=== PATIENT | female | born 1995 | race Two or more races ===

== ENCOUNTER 2019-10-05 02:29 | Inpatient (IN) ==
[2019-10-05 03:10] VITALS: BMI 27.3
[2019-10-05 03:23] LABS: AMNISURE ROM TEST THERE IS A RUPTURE (NO RUPTURE)
[2019-10-05 04:11] LABS: ALANINE AMINOTRANSFERASE 18 Units/L (12-78); ALBUMIN 2.5 g/dL (3.4-5.0); ALKALINE PHOSPHATASE 184 Units/L (46-116); ASPARTATE AMINO TRANSFERASE 21 Units/L (15-37); BLOOD UREA NITROGEN 10 mg/dL (7-18); CALCIUM 8.1 mg/dL (8.5-10.1); CARBON DIOXIDE 25.3 mmol/L (21-32); CHLORIDE 102 mmol/L (98-107); COR CA(FOR HYPOALB) 9.3 mg/dL (8.5-10.1); CREATININE 0.58 mg/dL (0.55-1.02); SODIUM 136 mmol/L (136-145); TOTAL PROTEIN 6.3 g/dL (6.4-8.2); eGFR NON BLACK RACES > 60 (>60)
[2019-10-05 04:18] LABS: HEMOGLOBIN 10.6 g/dL (12.0-16.0); MEAN PLATELET VOLUME 8.8 fL (7.4-11.0); RED BLOOD COUNT 4.07 X10^6/uL (3.5-5.4)
[2019-10-05 04:22] LABS: BASOPHILS % (AUTO) 0.4 % (0.2-1.0); EOSINOPHILS % (AUTO) 0.3 % (0.9-2.9); HEMATOCRIT 31.6 % (36.0-47.0); LYMPHOCYTES # (AUTO) 1.7 X10^3/uL (1.3-2.9); LYMPHOCYTES % (AUTO) 21.5 % (21.0-51.0); MEAN CORPUSCULAR HEMOGLOBIN 26.1 pg (27.0-34.0); MEAN CORPUSCULAR HGB CONC 33.6 g/dL (33.0-35.0); MEAN CORPUSCULAR VOLUME 77.8 fL (80.0-100.0); MONOCYTES # (AUTO) 0.5 x10^3/uL (0.3-0.8); MONOCYTES % (AUTO) 6.3 % (0.0-13.0); NEUTROPHILS # (AUTO) 5.6 x10^3/uL (2.2-4.8); NEUTROPHILS % (AUTO) 71.5 % (42.0-75.0); PLATELET COUNT 231 X10^3/uL (150.0-450.0); RED CELL DISTRIBUTION WIDTH 14.3 % (11.6-16.5); WHITE BLOOD COUNT 7.8 X10^3/uL (3.6-10.0)
[2019-10-05] MEDS ORDERED: D5 1/2 NS 1000 ML 1,000 ML IV ONE (04:24)
[2019-10-05] MEDS ORDERED: PITOCIN ONE (04:25)
[2019-10-05] MEDS ORDERED: D5 1/2 NS 1L W PITOCIN 20 UNITS/L 20 UNITS/1,000 ML BAG IV ONE (04:25)
[2019-10-05] MEDS ORDERED: D5LR 1L W PITOCIN 10 UNITS/L 10 UNITS/1,000 ML BAG IV ONE (04:25)
[2019-10-05] MEDS ORDERED: PHENERGAN INJ 25 MG IM PRN (04:33)
[2019-10-05] MEDS ORDERED: D5LR 1L W PITOCIN 10 UNITS/L 10 UNITS/1,000 ML BAG IV PRN (04:33)
[2019-10-05] MEDS ORDERED: REGLAN INJ 10 MG VIAL IVP PRN (04:33)
[2019-10-05] MEDS ORDERED: PITOCIN IVP ONE (04:33)
[2019-10-05] MEDS ORDERED: D5 1/2 NS 1000 ML 1,000 ML IV SCH (05:00)
[2019-10-05] MEDS ORDERED: STADOL INJ ONE (05:17)
[2019-10-05] MEDS ORDERED: STADOL INJ IVP PRN (05:18)
[2019-10-05] MEDS ORDERED: MOTRIN TAB 800 MG PO PRN (07:40)
[2019-10-05] MEDS ORDERED: D5 1/2 NS 1000 ML 1,000 ML with PITOCIN 20 UNITS IV SCH ×2 (08:00)
[2019-10-05] MEDS ORDERED: DERMOPLAST PAIN RELIEF SPRAY TOP PRN (08:13)
[2019-10-05] MEDS ORDERED: MILK OF MAGNESIA PO PRN (08:13)
[2019-10-05] MEDS ORDERED: AMBIEN PO PRN (08:13)
[2019-10-05] MEDS: PRENATAL PLUS PO SCH (11:46)
[2019-10-05] MEDS ORDERED: NS 100 ML IV 100 ML with VENOFER 400 MG IV NR ×2 (15:37)
[2019-10-05] MEDS ORDERED: NS 100 ML IV 100 ML IV ONE (15:38)
[2019-10-05] MEDS ORDERED: VENOFER IV ONE (15:44)
[2019-10-06 05:18] LABS: HEMATOCRIT 34.3 % (36.0-47.0); HEMOGLOBIN 11.3 g/dL (12.0-16.0)
[2019-10-06] MEDS ORDERED: NS 100 ML IV 100 ML with VENOFER 400 MG IV NR ×2 (07:00)
[2019-10-06] MEDS: PRENATAL PLUS PO SCH (08:05)
[2019-10-06 12:38] VITALS: BP 169/60
[2019-10-06] MEDS ORDERED: ADACEL or BOOSTRIX TDaP VACCINE IM ONE (13:00)
== END 2019-10-06 03:15 | disposition home or self-care (01) | DRG 807 ==
LOC: ER 02:30 → LD 03:50 → ER 03:50 → MED/SURG 08:14
PROVIDERS: ADMIT Obstetrics & Gynecology Obstetrics; ATTEND Obstetrics & Gynecology
DX: Z37.0 Single live birth; Z3A.39 39 weeks gestation of pregnancy; Z23 Encounter for immunization; O80 Encounter for full-term uncomplicated delivery; Z11.59 Encounter for screening for other viral diseases
CPT/HCPCS: 36415; 80053; 84112; 85014; 85018; 85025; 86592; 86850; 86900; 86901; 87635; 90715; 96365; 99284; A4216; A4222; J0595; J1756; J2590; J7050; S0197; S5010